=== PATIENT | male | born 1985 | race African-American/Black ===

== ENCOUNTER 2017-12-21 08:13 | Emergency (ER) | payer MEDICAID ==
[~2017-12-21] VITALS: Ht 193 cm; Wt 120.0 kg
[2017-12-21] MEDS ORDERED: KETOROLAC 15MG/ML VIAL IM ONE (09:30)
[2017-12-21 11:21] VITALS: BP 122/67
== END 2017-12-21 11:40 | disposition home or self-care (01) ==
LOC: ER 08:45
DX: M25.571 Pain in right ankle and joints of right foot (principal); M54.2 Cervicalgia; V49.49XA Driver injured in collision with other motor vehicles in traffic accident, initial encounter; Y93.89 Activity, other specified; Y92.410 Unspecified street and highway as the place of occurrence of the external cause; F12.90 Cannabis use, unspecified, uncomplicated
CPT/HCPCS: 72040; 73610; 96372; 99284; J1885